=== PATIENT | female | born 1940 | race Caucasian/White ===

== ENCOUNTER 2019-07-27 20:55 | Inpatient (IN) | payer MEDICARE ==
[~2019-07-27] VITALS: Ht 165.1 cm; Wt 100.0 kg
[2019-07-27] MEDS ORDERED: temazepam 15mg capsule PO PRN (21:00)
[2019-07-27] MEDS ORDERED: normal saline 1000ml 1,000 ML IV SCH ×2 (21:12→23:24)
--- NOTE | 2019-07-27 21:13 | NUR ---
received verbal orders from MD, placed those orders.
[2019-07-27 21:24] LABS: BASOPHILS % (AUTO) 0.4 % (0-1); EOSINOPHILS # (AUTO) 0.1 X10'3 (0-0.9); EOSINOPHILS % (AUTO) 0.7 % (0-6); HEMATOCRIT 41.6 % (35.0-45.0); HEMOGLOBIN 13.8 g/dl (12.0-16.0); LYMPHOCYTES # (AUTO) 1.6 X10'3 (1.1-4.8); LYMPHOCYTES % (AUTO) 17.8 % (21-51); MEAN CORPUSCULAR HGB CONC 33.2 g/dL (33.0-36.5); MEAN CORPUSCULAR VOLUME 90.2 FL (78-98); MEAN PLATELET VOLUME 8.5 FL (7.4-10.4); MONOCYTES # (AUTO) 0.7 X10'3 (0-0.9); MONOCYTES % (AUTO) 8.1 % (2-12); NEUTROPHILS # (AUTO) 6.5 X10'3 (1.8-7.7); PLATELET COUNT 263 X10'3 (140-440); RED BLOOD COUNT 4.61 X10'6 (4.20-5.60); RED CELL DISTRIBUTION WIDTH 15.6 % (11.5-14.5); WHITE BLOOD COUNT 8.8 X10'3 (4.5-11.0)
--- NOTE | 2019-07-27 21:27 | NUR ---
EKG DONE, CXR BS BEING PERFORMED.
[2019-07-27 21:44] LABS: ALANINE AMINOTRANSFERASE 30 U/L (12-78); ALBUMIN 3.8 G/DL (3.4-5.0); ALBUMIN/GLOBULIN RATIO 1.1 (1.1-1.5); ALKALINE PHOSPHATASE 86 IU/L (46-116); ANION GAP 11 (8-16); ASPARTATE AMINO TRANSFERASE 18 U/L (10-37); BILIRUBIN,TOTAL 0.6 MG/DL (0.1-1.0); BLOOD UREA NITROGEN 20 MG/DL (7-18); BUN/CREATININE RATIO 15.9 (6.6-38.0); CALCIUM 10.5 MG/DL (8.5-10.1); CHLORIDE 112 MMOL/L (99-107); CREATININE 1.26 MG/DL (0.40-0.90); ETHANOL < 0.010 GM/DL (0.0-0.010); GLUCOSE 117 MG/DL (70-104); LIPASE 138 U/L (73-393); SODIUM 149 MMOL/L (135-145); TOTAL PROTEIN 7.3 G/DL (6.4-8.2); TROPONIN I 0.04 NG/ML (0.0-0.05); eGFR 41 ML/MIN
[2019-07-27 21:45] LABS: POTASSIUM 2.7 MMOL/L (3.5-5.1)
[2019-07-27 21:48] LABS: CLARITY,URINE CLOUDY (Clear); COLOR,URINE YELLOW (Yellow); GLUCOSE, URINE NEGATIVE (Neg); KETONES,URINE TRACE mg/dl (Neg); LEUKOCYTE ESTERASE ,URINE TRACE (Neg); NITRITES, URINE POSITIVE (Neg); OCCULT BLOOD,URINE TRACE-INTACT (Neg); PROTEIN,URINE 100 mg/dl (Neg)
[2019-07-27 21:52] LABS: UA COLLECTION TYPE STRAIGHT CATH
[2019-07-27 21:54] LABS: BACTERIA,URINE 4+ /HPF (Neg); RBC,URINE 0-2 /HPF (0-2); SQUAMOUS EPITHELIAL CELL,UR FEW /LPF (FEW); WBC,URINE 0-4 /HPF (0-4)
[2019-07-27] MEDS ORDERED: potassium 10mEq/100ml NS w/LIDOcaine (10mg/bag) IV ONE (21:55)
[2019-07-27] MEDS ORDERED: potassium Cl 20 mEq SR tablet PO ONE ×2 (21:55→22:10)
--- NOTE | 2019-07-27 22:03 | NUR ---
MINALA ON PHONE, SHE HAS BEEN LOOKING FOR HER SINCE 1799. TOTAL KNEE REPLACEMENTS L TOTAL KNEE ARTHROPLASTY 10/27 R KNEE 05/31 RIGHT SHOULDER CUFF BUNIONECTOMY R HX ALCOHOL ABUSE. SOBER 8 YEARS NKA SHE DOESN'T LIKE IBUPROFEN TAKES NEURONTIN [facility]: [facility] [address]
[2019-07-27] MEDS ORDERED: CefTRIAXone/D5W-Rocephin 1gm 50 ML IV ONE (22:05)
[2019-07-27] MEDS ORDERED: CEPH250T PO (22:08)
--- NOTE | 2019-07-27 22:09 | NUR ---
SUSAN [phone] BALDO STANLEY
[2019-07-27] MEDS ORDERED: normal saline 1000ML IV soln IVB ONE (22:10)
[2019-07-27] MEDS ORDERED: potassium CL 10mEq/100ml bag 100 ML IV ONE (22:10)
[2019-07-27] MEDS ORDERED: potassium Cl 20 mEq SR tablet PO PRN (23:25)
[2019-07-27] MEDS ORDERED: acetaminophen 650mg rectal suppository RC PRN (23:25)
[2019-07-27] MEDS ORDERED: magnesium hydroxide 30ml (MOM) UD suspension PO PRN (23:25)
[2019-07-27] MEDS ORDERED: ondansetron/PF 4mg/2ml inj IV PRN (23:25)
[2019-07-27] MEDS ORDERED: magnesium 4gm in 100ml NS 100 ML IV PRN (23:25)
[2019-07-27] MEDS ORDERED: bisacodyl 10mg suppository rectal RC PRN (23:25)
[2019-07-27] MEDS ORDERED: acetaminophen 325mg tablet PO PRN ×2 (23:25)
[2019-07-27] MEDS ORDERED: potassium CL 10mEq/100ml bag 100 ML IV PRN (23:25)
[2019-07-27] MEDS ORDERED: magnesium 2GM in 50ml NS 50 ML IV PRN (23:25)
[2019-07-27] MEDS ORDERED: mag hydrox/Alum hydrox/simeth 30ml oral suspension PO PRN (23:25)
[2019-07-27] MEDS ORDERED: magnesium Cl slow-release 64mg tablet PO PRN (23:25)
[2019-07-27 23:50] LABS: URINE AMPHETAMINE SCREEN NEGATIVE (Neg); URINE BARBITUATE SCREEN NEGATIVE (Neg); URINE BENZODIAZEPINES SCREEN NEGATIVE (Neg); URINE CANNABINOID SCREEN NEGATIVE (Neg); URINE COCAINE SCREEN NEGATIVE (Neg); URINE METHADONE SCREEN NEGATIVE (Neg); URINE OPIATE SCREEN NEGATIVE (Neg); URINE PHENCYCLIDINE SCREEN NEGATIVE (Neg)
[2019-07-28] VITALS: BP 142/58
[2019-07-28] MEDS: potassium CL 20mEq in D5-1/2NS 1,000 ML IV SCH ×3 (01:30→21:30)
[2019-07-28 06:00] VITALS: BP 180/91
--- NOTE | 2019-07-28 06:30 | NUR ---
Patient in room [facility]. I have received report from katherine Valle and had the opportunity to ask questions and assume patient care.
--- NOTE | 2019-07-28 06:30 | NUR ---
Patient in room [facility] 348. I have received report from ALEXA Valle, and had the opportunity to ask questions and assume patient care.
[2019-07-28 06:54] LABS: BASOPHILS # (AUTO) 0.1 X10'3 (0-0.2); BASOPHILS % (AUTO) 0.8 % (0-1); EOSINOPHILS # (AUTO) 0.1 X10'3 (0-0.9); EOSINOPHILS % (AUTO) 1.4 % (0-6); HEMATOCRIT 41.7 % (35.0-45.0); HEMOGLOBIN 13.8 g/dl (12.0-16.0); LYMPHOCYTES # (AUTO) 1.9 X10'3 (1.1-4.8); LYMPHOCYTES % (AUTO) 23.5 % (21-51); MEAN CORPUSCULAR HEMOGLOBIN 30.2 PG (27.0-31.0); MEAN CORPUSCULAR VOLUME 91.6 FL (78-98); MEAN PLATELET VOLUME 8.7 FL (7.4-10.4); MONOCYTES # (AUTO) 0.7 X10'3 (0-0.9); MONOCYTES % (AUTO) 8.4 % (2-12); NEUTROPHILS # (AUTO) 5.2 X10'3 (1.8-7.7); NEUTROPHILS % (AUTO) 65.9 % (42-75); PLATELET COUNT 235 X10'3 (140-440); RED BLOOD COUNT 4.55 X10'6 (4.20-5.60); RED CELL DISTRIBUTION WIDTH 15.3 % (11.5-14.5); WHITE BLOOD COUNT 7.9 X10'3 (4.5-11.0)
[2019-07-28 07:23] LABS: ALANINE AMINOTRANSFERASE 30 U/L (12-78); ALBUMIN 3.5 G/DL (3.4-5.0); ALKALINE PHOSPHATASE 83 IU/L (46-116); ANION GAP 12 (8-16); ASPARTATE AMINO TRANSFERASE 20 U/L (10-37); BILIRUBIN,TOTAL 0.5 MG/DL (0.1-1.0); BLOOD UREA NITROGEN 17 MG/DL (7-18); CALCIUM 10.2 MG/DL (8.5-10.1); CHLORIDE 112 MMOL/L (99-107); GLUCOSE 121 MG/DL (70-104); MAGNESIUM 2.1 MG/DL (1.5-2.4); POTASSIUM 3.1 MMOL/L (3.5-5.1); SODIUM 148 MMOL/L (135-145); TOTAL CARBON DIOXIDE 24.3 MMOL/L (24-32); eGFR 54 ML/MIN
[2019-07-28] MEDS ORDERED: enoxaparin 40mg/0.4ml syringe SUBCUT SCH (08:00)
[2019-07-28] MEDS: K and/or MAG REPLACEMENT MC SCH ×2 (08:13→20:00)
[2019-07-28] MEDS ORDERED: TRIA1TAB5 PO (09:49)
[2019-07-28] MEDS ORDERED: VERA180T11 PO (09:49)
[2019-07-28] MEDS ORDERED: GABA-530 PO (09:49)
[2019-07-28] MEDS ORDERED: LEVO112T5 PO (09:49)
--- NOTE | 2019-07-28 11:00 | NUR ---
at bedside,notified of home meds confirmed with [facility],updated in med rec
[2019-07-28] MEDS: potassium Cl 20 mEq SR tablet PO PRN ×3 (11:52→23:23)
[2019-07-28] MEDS: CefTRIAXone/D5W-Rocephin 1gm 50 ML IV SCH (11:53)
[2019-07-28 11:55] VITALS: BP 161/89
--- NOTE | 2019-07-28 16:46 | NUR ---
Pt oriented to date but not year,place,but not purpose.,occ confabulation ,disjointed,tangital responses,removed telemetry,and wristband then "forgot"what they were for, occ attempting oob w/o assist,bed alarm on,frequent rounding,freq. reorientation
--- NOTE | 2019-07-28 18:15 | NUR ---
Problems reprioritized. Patient report given, questions answered & plan of care reviewed with katherine hernandes.
--- NOTE | 2019-07-28 18:55 | NUR ---
Patient in room [facility] 348. I have received report from ALEXA Cole and had the opportunity to ask questions and assume patient care.
[2019-07-28 19:00] VITALS: BP 183/73
[2019-07-28] MEDS: lactobacillus rhamnosus 10,000 MMU CELLS/CAPSULE PO SCH (21:09)
--- NOTE | 2019-07-28 23:00 | NUR ---
Hospitalist was made aware that the patients has had consistent high blood pressures. I also made him aware that the patient is more confused then she was the previous evening when I admitted her. He did not give me any new orders at this time.
[2019-07-28] MEDS: dextrose 5%-1/4 normal saline 1,000 ML IV SCH (23:22)
[2019-07-28] MEDS: apixaban 5mg tablet PO SCH (23:23)
[2019-07-28] MEDS: metoprolol succinate 25mg (24-HOUR) SR. Tablet PO SCH (23:23)
[2019-07-29] VITALS (8 sets, daily range): BP systolic 145–204; BP diastolic 59–130
[2019-07-29 05:35] LABS: BASOPHILS # (AUTO) 0.1 X10'3 (0-0.2); BASOPHILS % (AUTO) 0.9 % (0-1); EOSINOPHILS # (AUTO) 0.2 X10'3 (0-0.9); HEMATOCRIT 41.3 % (35.0-45.0); HEMOGLOBIN 13.6 g/dl (12.0-16.0); LYMPHOCYTES # (AUTO) 1.5 X10'3 (1.1-4.8); LYMPHOCYTES % (AUTO) 16.3 % (21-51); MEAN CORPUSCULAR HEMOGLOBIN 29.7 PG (27.0-31.0); MEAN CORPUSCULAR HGB CONC 32.9 g/dL (33.0-36.5); MEAN CORPUSCULAR VOLUME 90.5 FL (78-98); MONOCYTES # (AUTO) 0.6 X10'3 (0-0.9); MONOCYTES % (AUTO) 7.1 % (2-12); NEUTROPHILS # (AUTO) 6.6 X10'3 (1.8-7.7); NEUTROPHILS % (AUTO) 73.7 % (42-75); PLATELET COUNT 211 X10'3 (140-440); RED BLOOD COUNT 4.56 X10'6 (4.20-5.60); RED CELL DISTRIBUTION WIDTH 15.4 % (11.5-14.5)
[2019-07-29 05:56] LABS: ALANINE AMINOTRANSFERASE 32 U/L (12-78); ALBUMIN 3.3 G/DL (3.4-5.0); ALBUMIN/GLOBULIN RATIO 0.9 (1.1-1.5); ALKALINE PHOSPHATASE 87 IU/L (46-116); ANION GAP 10 (8-16); ASPARTATE AMINO TRANSFERASE 24 U/L (10-37); BILIRUBIN,TOTAL 0.5 MG/DL (0.1-1.0); BLOOD UREA NITROGEN 11 MG/DL (7-18); BUN/CREATININE RATIO 11.3 (6.6-38.0); CALCIUM 10.2 MG/DL (8.5-10.1); CHLORIDE 109 MMOL/L (99-107); CREATININE 0.97 MG/DL (0.40-0.90); GLUCOSE 119 MG/DL (70-104); MAGNESIUM 1.9 MG/DL (1.5-2.4); POTASSIUM 3.5 MMOL/L (3.5-5.1); SODIUM 143 MMOL/L (135-145); TOTAL CARBON DIOXIDE 24.5 MMOL/L (24-32); TOTAL PROTEIN 6.9 G/DL (6.4-8.2); eGFR 56 ML/MIN
--- NOTE | 2019-07-29 06:41 | NUR ---
Problems reprioritized. Patient report given, questions answered & plan of care reviewed with ALEXA Paris.
--- NOTE | 2019-07-29 06:45 | NUR ---
Patient in room [facility] 348. I have received report from John LIU and had the opportunity to ask questions and assume patient care.
[2019-07-29] MEDS: metoprolol succinate 25mg (24-HOUR) SR. Tablet PO SCH (07:08)
--- NOTE | 2019-07-29 07:56 | NUR ---
Paged Dr. Guillen regarding persistent elevated BP. PAGER ID: [phone] MESSAGE: Surgical Flr Wellington RN ext [phone]. RE: Hodan Gonzalez. BP this was very high 199/122, HR 73, manual 183/130. Metoprolol PO given this am, still very high. 204/106, HR 91 manual BP 195/120 HR100
[2019-07-29] MEDS: K and/or MAG REPLACEMENT MC SCH ×2 (08:00→20:00)
[2019-07-29] MEDS ORDERED: hydrALAZINE 20mg/ml inj. IV ONE (08:00)
[2019-07-29] MEDS ORDERED: hydrALAZINE 20mg/ml inj. IV PRN (08:00)
[2019-07-29] MEDS: apixaban 5mg tablet PO SCH ×2 (09:24→19:48)
[2019-07-29] MEDS: lactobacillus rhamnosus 10,000 MMU CELLS/CAPSULE PO SCH ×2 (09:24→19:48)
--- NOTE | 2019-07-29 11:39 | NUR ---
Applied pure wick on the patient after cleaning her up. Patient has been incontinent of urine, linens and gown changed
[2019-07-29] MEDS: CefTRIAXone/D5W-Rocephin 1gm 50 ML IV SCH (12:07)
[2019-07-29] MEDS: verapamil SR 180mg tablet PO SCH ×2 (12:07→23:32)
[2019-07-29] MEDS: triamterene/HCTZ 37.5/25mg tablet PO SCH (12:08)
[2019-07-29] MEDS: potassium CL 20mEq in D5-1/2NS 1,000 ML IV SCH ×2 (12:10→23:55)
--- NOTE | 2019-07-29 13:45 | NUR ---
Student documentation: I have reviewed and agree with all interventions, assessments performed and documented by Toro MORRELL from [facility].
[2019-07-29] MEDS: gabapentin 300mg capsule PO SCH ×2 (16:52→23:32)
--- NOTE | 2019-07-29 17:47 | NUR ---
Problems reprioritized. Patient report given, questions answered & plan of care reviewed with AELXA LOU.
--- NOTE | 2019-07-29 18:34 | NUR ---
Problems reprioritized. Patient report given, questions answered & plan of care reviewed with Rika LIU.
--- NOTE | 2019-07-29 18:38 | NUR ---
Patient in room [facility] 348. I have received report from RN and had the opportunity to ask questions and assume patient care. Addendum: 07/29/19 at 1839 by Vlad Winston RN Amended: Links added.
[2019-07-29] MEDS: lactose-reduced food (Ensure Enlive) - 237ml bottle PO SCH (19:00)
[2019-07-29] MEDS: dextrose 5%-1/4 normal saline 1,000 ML IV SCH (19:45)
--- NOTE | 2019-07-29 21:45 | NUR ---
pt confused, follows some commands, uses few words, has some difficulty searching for words, mumbles. moves arms slowly, beds knees but only able to hold up for a few seconds, states unable to grab side rail with hands. Addendum: 07/30/19 at 0142 by Vlad Winston RN Amended: Links added.
--- NOTE | 2019-07-29 23:29 | NUR ---
inc large amt urine. pt removed wick and placed on table and floor. bed bath, refused oral care, skin care, lotion aplied. turned poc with pillows. wick back in place. Addendum: 07/29/19 at 2331 by Vlad Winston RN Amended: Links added.
[2019-07-30 00:37] VITALS: BP 156/88
[2019-07-30 04:27] LABS: BASOPHILS # (AUTO) 0.1 X10'3 (0-0.2); BASOPHILS % (AUTO) 0.6 % (0-1); EOSINOPHILS # (AUTO) 0.2 X10'3 (0-0.9); EOSINOPHILS % (AUTO) 1.7 % (0-6); HEMOGLOBIN 13.2 g/dl (12.0-16.0); LYMPHOCYTES # (AUTO) 1.3 X10'3 (1.1-4.8); LYMPHOCYTES % (AUTO) 14.2 % (21-51); MEAN CORPUSCULAR HEMOGLOBIN 30.3 PG (27.0-31.0); MEAN CORPUSCULAR HGB CONC 33.2 g/dL (33.0-36.5); MEAN CORPUSCULAR VOLUME 91.5 FL (78-98); MEAN PLATELET VOLUME 9.3 FL (7.4-10.4); MONOCYTES # (AUTO) 0.6 X10'3 (0-0.9); MONOCYTES % (AUTO) 6.8 % (2-12); NEUTROPHILS % (AUTO) 76.7 % (42-75); PLATELET COUNT 220 X10'3 (140-440); RED BLOOD COUNT 4.37 X10'6 (4.20-5.60); RED CELL DISTRIBUTION WIDTH 15.3 % (11.5-14.5); WHITE BLOOD COUNT 9.1 X10'3 (4.5-11.0)
[2019-07-30 04:34] LABS: ALANINE AMINOTRANSFERASE 29 U/L (12-78); ALBUMIN 3.1 G/DL (3.4-5.0); ALBUMIN/GLOBULIN RATIO 0.9 (1.1-1.5); ALKALINE PHOSPHATASE 85 IU/L (46-116); ANION GAP 1 (8-16); ASPARTATE AMINO TRANSFERASE 20 U/L (10-37); BILIRUBIN,TOTAL 0.6 MG/DL (0.1-1.0); BLOOD UREA NITROGEN 11 MG/DL (7-18); BUN/CREATININE RATIO 10.8 (6.6-38.0); CALCIUM 9.9 MG/DL (8.5-10.1); CHLORIDE 106 MMOL/L (99-107); CREATININE 1.02 MG/DL (0.40-0.90); GLUCOSE 104 MG/DL (70-104); MAGNESIUM 1.8 MG/DL (1.5-2.4); POTASSIUM 3.2 MMOL/L (3.5-5.1); SODIUM 134 MMOL/L (135-145); TOTAL CARBON DIOXIDE 26.7 MMOL/L (24-32); TOTAL PROTEIN 6.5 G/DL (6.4-8.2); eGFR 53 ML/MIN
--- NOTE | 2019-07-30 05:00 | NUR ---
OPEN EYES, STATES YES, REFUSES CARE Addendum: 07/30/19 at 0516 by Vlad Winston RN Amended: Links added.
[2019-07-30] MEDS: potassium Cl 20 mEq SR tablet PO PRN (05:07)
--- NOTE | 2019-07-30 05:12 | NUR ---
K+ 3.2 PT REFUSES TO TAKE PO POTASSIUM Addendum: 07/30/19 at 0513 by Vlad Winston RN Amended: Links added.
--- NOTE | 2019-07-30 06:17 | NUR ---
Problems reprioritized. Patient report given, questions answered & plan of care reviewed with ALEXA Gonzalez. Addendum: 07/30/19 at 0617 by Vlad Winston RN Amended: Links added.
--- NOTE | 2019-07-30 06:20 | NUR ---
Patient in room [facility] 348. I have received report from Rika LIU and had the opportunity to ask questions and assume patient care.
[2019-07-30] MEDS: potassium CL 10mEq/100ml bag 100 ML IV PRN ×3 (07:47→13:05)
[2019-07-30 07:54] VITALS: BP 179/81
[2019-07-30] MEDS: lactose-reduced food (Ensure Enlive) - 237ml bottle PO SCH ×3 (08:00→18:00)
[2019-07-30] MEDS: K and/or MAG REPLACEMENT MC SCH ×2 (08:00→20:00)
[2019-07-30 08:57] VITALS: BP 140/70
[2019-07-30] MEDS: gabapentin 300mg capsule PO SCH ×3 (09:15→23:53)
[2019-07-30] MEDS: metoprolol succinate 25mg (24-HOUR) SR. Tablet PO SCH (09:15)
[2019-07-30] MEDS: lactobacillus rhamnosus 10,000 MMU CELLS/CAPSULE PO SCH ×2 (09:16→20:12)
[2019-07-30] MEDS: triamterene/HCTZ 37.5/25mg tablet PO SCH (09:16)
[2019-07-30] MEDS: levoTHYROXINE 112mcg tablet PO SCH (09:16)
[2019-07-30] MEDS: verapamil SR 180mg tablet PO SCH ×2 (09:16→20:11)
[2019-07-30] MEDS: apixaban 5mg tablet PO SCH ×2 (09:19→20:12)
--- NOTE | 2019-07-30 09:35 | NUR ---
Patient eating her breakfast tray at the moment. She drank her ensure. Patient alert oriented to person and place today
[2019-07-30 11:00] VITALS: BP 116/36
[2019-07-30] MEDS: dextrose 5%-1/4 normal saline 1,000 ML IV SCH (12:00)
[2019-07-30] MEDS: CefTRIAXone/D5W-Rocephin 1gm 50 ML IV SCH (12:00)
[2019-07-30] MEDS: nystatin 15 GM powder TP SCH ×2 (13:05→20:12)
--- NOTE | 2019-07-30 15:22 | NUR ---
Paged Dr. Gotti regarding pain medicine order so that patient can be more cooperative during physical therapy
--- NOTE | 2019-07-30 17:33 | NUR ---
Nutrition consult "poor PO started on ensures": Pt AOx2 admit w/ UTI, MARQUIS vs CKD, and new onset afib per MD. PO 0% 2 meals increased to 100% breakfast today w/ 50-75% prior on regular diet. Appetite improving at this time per RN. Will continue to monitor. Addendum: 07/30/19 at [address] Amended: Links added.
--- NOTE | 2019-07-30 18:36 | NUR ---
Problems reprioritized. Patient report given, questions answered & plan of care reviewed with Melquiades LIU.
[2019-07-30 18:50] VITALS: BP 109/43
[2019-07-30] MEDS: potassium CL 20mEq in D5-1/2NS 1,000 ML IV SCH (19:55)
[2019-07-30 20:00] VITALS: BP 109/43
[2019-07-30] MEDS: HYDROcodone/acetaminophen 5mg/325mg tablet PO PRN (20:13)
[2019-07-31 00:24] VITALS: BP 107/7
[2019-07-31 05:09] LABS: BASOPHILS % (AUTO) 0.4 % (0-1); EOSINOPHILS # (AUTO) 0.2 X10'3 (0-0.9); EOSINOPHILS % (AUTO) 2.1 % (0-6); HEMATOCRIT 39.2 % (35.0-45.0); LYMPHOCYTES # (AUTO) 1.6 X10'3 (1.1-4.8); LYMPHOCYTES % (AUTO) 17.2 % (21-51); MEAN CORPUSCULAR HEMOGLOBIN 30.1 PG (27.0-31.0); MEAN CORPUSCULAR HGB CONC 33.1 g/dL (33.0-36.5); MEAN PLATELET VOLUME 9.1 FL (7.4-10.4); MONOCYTES # (AUTO) 0.8 X10'3 (0-0.9); MONOCYTES % (AUTO) 8.2 % (2-12); NEUTROPHILS # (AUTO) 6.6 X10'3 (1.8-7.7); NEUTROPHILS % (AUTO) 72.1 % (42-75); PLATELET COUNT 224 X10'3 (140-440); RED BLOOD COUNT 4.31 X10'6 (4.20-5.60); RED CELL DISTRIBUTION WIDTH 15.5 % (11.5-14.5); WHITE BLOOD COUNT 9.2 X10'3 (4.5-11.0)
[2019-07-31 05:23] LABS: ALANINE AMINOTRANSFERASE 36 U/L (12-78); ALBUMIN/GLOBULIN RATIO 0.9 (1.1-1.5); ALKALINE PHOSPHATASE 92 IU/L (46-116); ANION GAP 11 (8-16); ASPARTATE AMINO TRANSFERASE 24 U/L (10-37); BILIRUBIN,TOTAL 0.4 MG/DL (0.1-1.0); BLOOD UREA NITROGEN 28 MG/DL (7-18); BUN/CREATININE RATIO 22.8 (6.6-38.0); CALCIUM 9.9 MG/DL (8.5-10.1); CHLORIDE 107 MMOL/L (99-107); CREATININE 1.23 MG/DL (0.40-0.90); GLUCOSE 106 MG/DL (70-104); MAGNESIUM 1.9 MG/DL (1.5-2.4); POTASSIUM 3.5 MMOL/L (3.5-5.1); SODIUM 141 MMOL/L (135-145); TOTAL CARBON DIOXIDE 23.1 MMOL/L (24-32); TOTAL PROTEIN 6.5 G/DL (6.4-8.2); eGFR 42 ML/MIN
[2019-07-31] MEDS: HYDROcodone/acetaminophen 5mg/325mg tablet PO PRN ×3 (05:47→20:02)
--- NOTE | 2019-07-31 06:18 | NUR ---
Problems reprioritized. Patient report given, questions answered & plan of care reviewed with VALORIE. Addendum: 07/31/19 at 0619 by Jayme Mendosa RN Amended: Links added.
[2019-07-31 07:30] VITALS: BP 119/76
[2019-07-31] MEDS: K and/or MAG REPLACEMENT MC SCH ×2 (08:00→19:57)
[2019-07-31] MEDS: apixaban 5mg tablet PO SCH ×2 (08:10→20:00)
[2019-07-31] MEDS: gabapentin 300mg capsule PO SCH ×2 (08:11→16:01)
[2019-07-31] MEDS: lactobacillus rhamnosus 10,000 MMU CELLS/CAPSULE PO SCH ×2 (08:11→20:00)
[2019-07-31] MEDS: levoTHYROXINE 112mcg tablet PO SCH (08:11)
[2019-07-31] MEDS: nystatin 15 GM powder TP SCH ×3 (08:11→22:07)
[2019-07-31] MEDS: metoprolol succinate 25mg (24-HOUR) SR. Tablet PO SCH (08:11)
[2019-07-31] MEDS: verapamil SR 180mg tablet PO SCH ×2 (08:13→19:59)
[2019-07-31] MEDS: triamterene/HCTZ 37.5/25mg tablet PO SCH (08:13)
[2019-07-31] MEDS: lactose-reduced food (Ensure Enlive) - 237ml bottle PO SCH ×3 (08:21→18:07)
[2019-07-31 11:00] VITALS: BP 124/66
[2019-07-31] MEDS: dextrose 5%-1/4 normal saline 1,000 ML IV SCH ×2 (11:53→22:07)
[2019-07-31] MEDS: CefTRIAXone/D5W-Rocephin 1gm 50 ML IV SCH (12:13)
[2019-07-31] MEDS ORDERED: CIPR-230 PO (13:45)
[2019-07-31] MEDS ORDERED: Neutra Phos packet PO PRN (15:05)
--- NOTE | 2019-07-31 15:18 | NUR ---
PAGER ID: [phone] MESSAGE: IRISH Siddiqui CAN DC TELE MONITOR SINCE DISCHARGE TOMORROW? VALORIE [phone]
[2019-07-31] MEDS: potassium CL 20mEq in D5-1/2NS 1,000 ML IV SCH (15:55)
--- NOTE | 2019-07-31 18:17 | NUR ---
REPORT GIVEN TO ASHLI LIU.
[2019-07-31 20:00] VITALS: BP 137/53
--- NOTE | 2019-07-31 21:56 | NUR ---
Problems reprioritized. Patient report given, questions answered & plan of care reviewed with Sravan. Addendum: 07/31/19 at 2156 by Jayme Mendosa RN Amended: Links added.
[2019-07-31 22:00] VITALS: BP 136/63
[2019-08-01] MEDS: gabapentin 300mg capsule PO SCH ×2 (00:25→08:52)
[2019-08-01 02:00] VITALS: BP 140/70
[2019-08-01 03:41] LABS: BASOPHILS # (AUTO) 0.1 X10'3 (0-0.2); BASOPHILS % (AUTO) 0.7 % (0-1); EOSINOPHILS # (AUTO) 0.2 X10'3 (0-0.9); EOSINOPHILS % (AUTO) 3.1 % (0-6); HEMATOCRIT 38.3 % (35.0-45.0); HEMOGLOBIN 12.6 g/dl (12.0-16.0); LYMPHOCYTES # (AUTO) 1.6 X10'3 (1.1-4.8); LYMPHOCYTES % (AUTO) 22.3 % (21-51); MEAN CORPUSCULAR HEMOGLOBIN 30.2 PG (27.0-31.0); MEAN CORPUSCULAR HGB CONC 32.9 g/dL (33.0-36.5); MEAN CORPUSCULAR VOLUME 91.7 FL (78-98); MONOCYTES # (AUTO) 0.7 X10'3 (0-0.9); MONOCYTES % (AUTO) 8.9 % (2-12); NEUTROPHILS # (AUTO) 4.8 X10'3 (1.8-7.7); PLATELET COUNT 194 X10'3 (140-440); RED BLOOD COUNT 4.17 X10'6 (4.20-5.60); RED CELL DISTRIBUTION WIDTH 15.8 % (11.5-14.5); WHITE BLOOD COUNT 7.4 X10'3 (4.5-11.0)
[2019-08-01 03:56] LABS: ALANINE AMINOTRANSFERASE 39 U/L (12-78); ALBUMIN/GLOBULIN RATIO 0.8 (1.1-1.5); ALKALINE PHOSPHATASE 95 IU/L (46-116); ANION GAP 8 (8-16); ASPARTATE AMINO TRANSFERASE 21 U/L (10-37); BILIRUBIN,TOTAL 0.3 MG/DL (0.1-1.0); BLOOD UREA NITROGEN 39 MG/DL (7-18); BUN/CREATININE RATIO 29.3 (6.6-38.0); CALCIUM 10.3 MG/DL (8.5-10.1); CHLORIDE 105 MMOL/L (99-107); CREATININE 1.33 MG/DL (0.40-0.90); GLUCOSE 109 MG/DL (70-104); MAGNESIUM 2.2 MG/DL (1.5-2.4); SODIUM 139 MMOL/L (135-145); TOTAL CARBON DIOXIDE 26.5 MMOL/L (24-32); TOTAL PROTEIN 6.6 G/DL (6.4-8.2); eGFR 39 ML/MIN
[2019-08-01 06:00] VITALS: BP 145/75
--- NOTE | 2019-08-01 06:22 | NUR ---
Problems reprioritized. Patient report given to Sharon JUAREZ, questions answered & plan of care reviewed with .
[2019-08-01] MEDS: levoTHYROXINE 112mcg tablet PO SCH (08:00)
[2019-08-01] MEDS: K and/or MAG REPLACEMENT MC SCH (08:00)
[2019-08-01] MEDS: lactose-reduced food (Ensure Enlive) - 237ml bottle PO SCH (08:00)
[2019-08-01] MEDS: metoprolol succinate 25mg (24-HOUR) SR. Tablet PO SCH (08:50)
[2019-08-01] MEDS: triamterene/HCTZ 37.5/25mg tablet PO SCH (08:50)
[2019-08-01] MEDS: lactobacillus rhamnosus 10,000 MMU CELLS/CAPSULE PO SCH (08:52)
[2019-08-01] MEDS: apixaban 5mg tablet PO SCH (08:53)
[2019-08-01] MEDS: HYDROcodone/acetaminophen 5mg/325mg tablet PO PRN ×2 (08:54→13:12)
[2019-08-01] MEDS: verapamil SR 180mg tablet PO SCH (08:55)
[2019-08-01] MEDS: nystatin 15 GM powder TP SCH ×2 (08:57→13:27)
--- NOTE | 2019-08-01 10:45 | NUR ---
PHYSICAL THERAPY PAGED: [phone]: STACIE: REFUSING REHAB. HOME W/ [facility] TODAY. COULD YOU HAVE HER WORK WITH [facility] PER CASE MGT? TY
[2019-08-01 11:00] VITALS: BP 150/95
[2019-08-01] MEDS: CefTRIAXone/D5W-Rocephin 1gm 50 ML IV SCH (13:12)
[2019-08-01] MEDS ORDERED: APIX5TAB3 PO (15:16)
--- NOTE | 2019-08-01 15:30 | NUR ---
The pt has remained stable. VSS. Orders for discharge obtained. IV discontinued cath intact, pt tolerated well, and no s/s of complications. POA was given discharge instructions as well both she and pt stated understanding. She had no belongings brought to hospital except she stated a pain of "old pink" $5.00 slippers 1 found but she stated she was not worried about it. She was given two clean gowns to go home in. [facility]
[2019-08-01] MEDS ORDERED: gabapentin 300mg capsule PO SCH (20:00)
--- NOTE | 2019-08-03 15:23 | NUR ---
Case Management DC follow up: spoke to pt via telephone. S/P: UTI Reports: "feeling fine". Denies: acute cp, SOB, resp distress, vertigo, syncope,weakness, blurry vision, N/V, JIMENEZ, emergent general pain, abd tenderness/distension, fever. Verbalizes understanding of s/s that warrant 9-11/ER visit for evaluation. Verbalizes understanding of new Rx: Cipro, Eliquis and why prescribed, resumes current Rx/taking as ordered, no ase r/t polypharmacy. Went over orthostatic hypotension as a precaution r/t new medication. Acknowledges need to schedule/keep follow up appts w/ PCP/Alecia . [facility] intake 08/02/19, rtn 08/04/19. Needs met, questions answered at DC, no further questions at this time.
== END 2019-08-01 16:42 | disposition home health service (06) | DRG 682 ==
LOC: ER 20:55 → SUR 3N 07-28 00:38 → UNDOADMIN 07-28 00:38 → SUR 3N 07-28 23:24 → CMPBEDREQ 07-31 11:00 → MED 3N 07-31 21:45
PROVIDERS: ADMIT Family Medicine; ATTEND Internal Medicine
DX: N17.9 Acute kidney failure, unspecified (principal); G93.41 Metabolic encephalopathy; N39.0 Urinary tract infection, site not specified; R94.6 Abnormal results of thyroid function studies; B96.20 Unspecified Escherichia coli [E. coli] as the cause of diseases classified elsewhere; E86.0 Dehydration; E66.01 Morbid (severe) obesity due to excess calories; E87.6 Hypokalemia; I10 Essential (primary) hypertension; I48.91 Unspecified atrial fibrillation; T67.5XXA Heat exhaustion, unspecified, initial encounter; X30.XXXA Exposure to excessive natural heat, initial encounter; Z68.36 Body mass index [BMI] 36.0-36.9, adult; Z79.899 Other long term (current) drug therapy
CPT/HCPCS: 36415; 70450; 71045; 80053; 80305; 80320; 81001; 83690; 83735; 83880; 84100; 84439; 84443; 84484; 85025; 87077; 87081; 87088; 87186; 93005; 93306; 97110; 97116; 97161; 97530; 97535; 99285; G0378; J0360; J0696; J1650; J3480; J7030

== ENCOUNTER 2020-03-22 16:27 | Emergency (ER) | payer MEDICARE ==
[~2020-03-22] VITALS: Ht 167.6 cm; Wt 140.0 kg
[~2020-03-22 16:27] MED LIST: ATOR20TA66 PO; BIMA2.5D5 EACHEYE; DORZ10DR10 EACHEYE; GABA-534 PO; HYDR-3964 PO; HYDR-4070 PO; LEVO112T5 PO; NETA2.5D EACHEYE; RIVA20TA PO; VERA180T PO
[2020-03-22] MEDS ORDERED: normal saline 1000ML IV soln IVB ONE (18:35)
[2020-03-22 19:44] LABS: CLARITY,URINE CLOUDY (Clear); COLOR,URINE YELLOW (Yellow); GLUCOSE, URINE NEGATIVE (Neg); KETONES,URINE TRACE mg/dl (Neg); LEUKOCYTE ESTERASE ,URINE SMALL (Neg); NITRITES, URINE NEGATIVE (Neg); OCCULT BLOOD,URINE NEGATIVE (Neg); PROTEIN,URINE TRACE mg/dl (Neg); UROBILINOGEN,URINE 0.2 E.U/dL (0.2-1.0)
[2020-03-22 19:45] LABS: EOSINOPHILS % (AUTO) 0 % (0-6); MEAN CORPUSCULAR HEMOGLOBIN 29.1 PG (27.0-31.0)
[2020-03-22 19:47] LABS: BASOPHILS % (AUTO) 0.4 % (0-1); HEMATOCRIT 40.6 % (35.0-45.0); HEMOGLOBIN 13.4 g/dl (12.0-16.0); LYMPHOCYTES # (AUTO) 0.5 X10'3 (1.1-4.8); LYMPHOCYTES % (AUTO) 8.3 % (21-51); MEAN CORPUSCULAR VOLUME 87.9 FL (78-98); MONOCYTES # (AUTO) 0.1 X10'3 (0-0.9); MONOCYTES % (AUTO) 1.1 % (2-12); NEUTROPHILS # (AUTO) 5.5 X10'3 (1.8-7.7); NEUTROPHILS % (AUTO) 90.2 % (42-75); PLATELET COUNT 284 X10'3 (140-440); RED BLOOD COUNT 4.61 X10'6 (4.20-5.60); RED CELL DISTRIBUTION WIDTH 16.1 % (11.5-14.5); WHITE BLOOD COUNT 6.1 X10'3 (4.5-11.0)
[2020-03-22 19:52] LABS: UA COLLECTION TYPE STRAIGHT CATH
[2020-03-22 19:53] LABS: AMORPHOUS PHOSPHATES 3+; BACTERIA,URINE FEW /HPF (Neg); RBC,URINE NONE SEEN /HPF (0-2); SQUAMOUS EPITHELIAL CELL,UR FEW /LPF (FEW); WBC,URINE 0-4 /HPF (0-4)
--- NOTE | 2020-03-22 20:44 | NUR ---
[facility] JESSICA HOWELL [phone]
[2020-03-22 20:51] LABS: ALANINE AMINOTRANSFERASE 27 U/L (12-78); ALBUMIN 3.4 G/DL (3.4-5.0); ALBUMIN/GLOBULIN RATIO 0.8 (1.1-1.5); ALKALINE PHOSPHATASE 103 IU/L (46-116); ANION GAP 11 (8-16); ASPARTATE AMINO TRANSFERASE 21 U/L (10-37); BILIRUBIN,TOTAL 0.6 MG/DL (0.1-1.0); BLOOD UREA NITROGEN 24 MG/DL (7-18); BUN/CREATININE RATIO 24.7 (6.6-38.0); CALCIUM 11.2 MG/DL (8.5-10.1); CHLORIDE 106 MMOL/L (99-107); CREATININE 0.97 MG/DL (0.40-0.90); GLUCOSE 116 MG/DL (70-104); POTASSIUM 3.5 MMOL/L (3.5-5.1); SODIUM 138 MMOL/L (135-145); TOTAL CARBON DIOXIDE 21.3 MMOL/L (24-32); TOTAL PROTEIN 7.6 G/DL (6.4-8.2); eGFR 56 ML/MIN
--- NOTE | 2020-03-22 21:48 | NUR ---
pt sanna. shey aly clerk working on van transport back to [facility].
--- NOTE | 2020-03-22 21:51 | NUR ---
CALLED ZELDA AND GAVE REPORT FOR RETURN TO FACILITY
[2020-03-22 21:54] VITALS: BP 136/87
--- NOTE | 2020-03-22 21:57 | NUR ---
PT WITH STABLE VS. PT WITH DRY DIAPER ON. AWAITING TRANSPORT.
== END 2020-03-23 01:30 | disposition home or self-care (01) ==
LOC: ER 16:27
DX: U07.1 COVID-19 (principal); R41.0 Disorientation, unspecified; F03.90 Unspecified dementia, unspecified severity, without behavioral disturbance, psychotic disturbance, mood disturbance, and anxiety; E86.0 Dehydration; I48.91 Unspecified atrial fibrillation; Z87.440 Personal history of urinary (tract) infections; Z98.890 Other specified postprocedural states; Z79.899 Other long term (current) drug therapy
CPT/HCPCS: 36415; 70450; 71045; 80053; 81001; 83605; 85025; 87040; 87088; 93005; 96360; 96361; 99285; J7030; 87186